=== PATIENT | female | born 1995 | race Caucasian/White ===

== ENCOUNTER 2018-04-16 20:44 | Emergency (ER) | payer SELFPAY ==
[2018-04-16 21:00] VITALS: BP 111/78
--- NOTE | 2018-04-16 21:53 | UC ---
Throat Pain/Nasal Terence HPI - HPI Summary HPI Summary: Patient is a 23-year-old female with a history of mono as well as pharyngitis and strep throat presenting to the with 1 day history of sore throat. She states she endorses exudate to the right side without tonsillar swelling or redness. Denies any fevers, however has been endorsing some sweats and chills. Endorses some diffuse body aches. She appears well on arrival and vital signs are stable. - History of Current Complaint Chief Complaint: UCRespiratory Stated Complaint: SORE THROAT,ACHES Time Seen by Provider: 04/16/18 21:04 Hx Obtained From: Patient Hx Last Menstrual Period: 04/09/18 ?: No Onset/Duration: Sudden Onset Severity: Moderate Pain Intensity: 6 Pain Scale Used: 0-10 Numeric Associated Signs & Symptoms: Positive: Negative - Epiglottits Risk Factors Epiglottis Risk Factors: Negative - Allergies/Home Medications Allergies/Adverse Reactions: Allergies Allergy/AdvReac Type Severity Reaction Status Date / Time swine flu vaccine Allergy Facial Uncoded 04/16/18 21:01 Redness/Flushing Home Medications: Home Medications Ibuprofen [Advil] 200 mg PO ONCE PRN 04/16/18 [History Confirmed 04/16/18] PMH/Surg Hx/FS Hx/Imm Hx Previously Healthy: Yes - Surgical History Surgical History: None - Social History Occupation: Employed Full-time Lives: With Family Alcohol Use: Occasionally Substance Use Type: None Smoking Status (MU): Never Smoked Tobacco Review of Systems Constitutional: Negative Skin: Negative Eyes: Negative ENT: Sore Throat Respiratory: Negative Cardiovascular: Negative Motor: Negative Neurovascular: Negative Neurological: Negative Is Patient Immunocompromised?: No All Other Systems Reviewed And Are Negative: Yes Physical Exam Triage Information Reviewed: Yes Appearance: Well-Appearing, No Pain Distress, Well-Nourished Vital Signs: Initial Vital Signs Temp 99.8 F 04/16/18 20:45 Pulse 87 04/16/18 20:45 Resp 18 04/16/18 20:45 BP 111/78 04/16/18 20:45 Pulse Ox 100 04/16/18 20:45 Vital Signs Reviewed: Yes Eye Exam: Normal Eyes: Positive: Conjunctiva Clear ENT: Positive: Pharynx normal Neck exam: Normal Neck: Positive: Supple, No Lymphadenopathy Respiratory Exam: Normal Respiratory: Positive: Chest non-tender Cardiovascular Exam: Normal Cardiovascular: Positive: RRR Musculoskeletal Exam: Normal Musculoskeletal: Positive: Strength Intact Psychological Exam: Normal Psychological: Positive: Normal Response To Family Skin Exam: Normal Throat Pain/Nasal Course/Dx - Course Course Of Treatment: During the course treatment, the patient is evaluated for throat pain. Strep swab obtained and is negative. On physical examination there is no evidence of pharyngeal erythema or exudates. Tonsils enlarged +1 bilaterally. No evidence of airway obstruction. Patient appears well and vital signs are stable. I have encouraged Cepacol as well as Tylenol and ibuprofen for relief. - Differential Dx/Diagnosis Differential Diagnosis/HQI/PQRI: Pharyngitis, URI Provider Diagnoses: Pharyngitis Discharge - Sign-Out/Discharge Documenting (check all that apply): Patient Departure - Discharge Plan Condition: Stable Disposition: HOME Patient Education Materials: Pharyngitis (ED) Referrals: On License Of [facility] [Primary Care Provider] - Additional Instructions: Cepacol over the counter for any discomfort Tylenol and Ibuprofen use intermittently for discomfort If symptoms worsen or you develop a fever, return to the - Billing Disposition and Condition Condition: STABLE Disposition: Home
== END 2018-04-16 21:53 | disposition home or self-care (01) ==
LOC: UCEAST 20:44
DX: J02.9 Acute pharyngitis, unspecified (principal)
CPT/HCPCS: 87651; 99201; G0463